=== PATIENT | male | born 1985 | race Caucasian/White ===

== ENCOUNTER 2017-03-19 03:26 | Emergency (ER) | payer MEDICAID ==
[~2017-03-19] VITALS: Ht 175.3 cm; Wt 147.4 kg
--- NOTE | 2017-03-19 04:06 | Emergency Room Report ---
History of Present Illness Time Seen by [id number] Presenting Problem in Triage Pt arrived:Walked Presenting Problem:right rib cage muscle spasm x 2 hours. has had fever and malaise x 7 days. tmax 102.7 saturday night. 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 Y Clinical Suspician of Infection? Y Mental Status: 1 - Regular (Normal Baseline) Sepsis Risk:Low Sepsis Risk Have you (or family members/close friends) recently traveled outside the [place]? N If Yes, where/when: Have you had exposure to infectious disease within the past month? N TB? Other? Specify: Source patient, RN notes reviewed, old records Exam Limitations no limitations Comment fever and not feeling well over the last few days Cardiac Chest Pain Chest pain indicative of cardiac No Timing/Duration this evening Severity moderate ALLERGIES Coded Allergies: Penicillins (03/19/17) amoxicillin (03/19/17) Home Medications Active Scripts Cyclobenzaprine Hcl (Flexeril) 10 MG PO TID #15 Prov: 12/12/09 Ibuprofen (Ibuprofen 800mg) 800 MG PO TID 5 Days Prov: 12/12/09 History Medical History General Angina: No [place]: No Hypertension? No Hyperlipidemia? No COPD? No Asthma? Yes CVA? No Seizures? No Diabetes? No GB Disease: No Hepatitis? No MRSA? No TB? No Cancer? No Immunization Hx DT/Tetanus UNKNOWN Surgical Hx Previous Surgery?N Family History Family Hx Diabetes No Hypertension Yes Cancer Yes TB No Social History Smoking Hx Smoker: Former Smoker Tobacco: Yes Type Chew Packs/day < 1 Pack Alcohol Alcohol: No Drugs none Review of Systems All Other Systems Reviewed and Negative Constitutional see HPI, fever, weakness Eyes denies drainage ENT denies: ear discharge, epistaxis, throat pain. Respiratory denies cough, denies shortness of breath, denies wheezing Cardiovascular denies chest pain, denies syncope Gastrointestinal see HPI, denies abdominal pain, nausea, denies vomiting Genitourinary denies: dysuria, frequency, hesitancy, hematuria. Musculoskeletal denies back pain, denies joint pain, denies joint swelling, denies neck pain Skin denies rash Psychiatric/Neurological denies headache, denies seizure Physical Exam Vital Signs Vital Signs Date Time Temp Pulse Resp B/P Pulse O2 O2 Flow FiO2 Ox Delivery Rate 03/19 0608 98.6 107 16 111/63 97 03/19 0540 98.6 103 16 123/67 97 03/19 0510 98.6 101 16 114/71 97 03/19 0430 98.4 117 16 133/75 97 03/19 0330 98.4 117 16 117/75 97 - WBC >12,000 or <4,000 or 10% bands? 2 or more SIRS Criteria Met? B/P:111/ MAP:89 Creatinine >2.0? UA output<0.5ml/kg/hr for 2 hrs? Platelet count >100,000? Lactate >2.0mmol/1? INR >1.2 or PTT > than 60 sec? Evidence of Organ Dysfunction? Provider documented clinical suspician of infection? Y Sepsis Criteria Count: 1 Sepsis Risk: Low Sepsis Risk General Appearance no apparent distress Eye Exam - bilateral eye PERRL, bilateral eye EOMI Ear, Nose, Throat normal ENT inspection Neck supple Respiratory Status No: respiratory distress. Lung Sounds bilateral: decreased breath sounds. 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 No Results/Orders Laboratory Tests 03/19/17 0600: Urine Color DK YELLOW, Urine Appearance CLEAR, Urine pH 6.0, Ur Specific [place] >= 1.030, Urine Protein NEGATIVE, Urine Ketones TRACE H, Urine Blood NEGATIVE, Urine Nitrate NEGATIVE, Urine Bilirubin NEGATIVE, Urine Urobilinogen 1.0, Ur Leukocyte Esterase NEGATIVE, Urine WBC 5-10, Urine Bacteria 1+, Hyaline Casts OCC, Urine Mucus OCC, Urine Glucose NEGATIVE 03/19/17 0500: Lactic Acid Pending 03/19/17 0500: Sodium 136, Potassium 3.5, Chloride 100, Carbon Dioxide 25, BUN 11, Creatinine 1.0, Estimated Creat Clear 225 H, Estimated GFR (MDRD) 88, Glucose 114 H, Calcium 8.9, Total Bilirubin 0.6, AST 13 L, ALT 34, Alkaline Phosphatase 64, Creatine Kinase 125, CK-MB (CK-2) Rel Index 0.4, CK and CKMB Interp < 0.5, Troponin I 0.05, Total Protein 7.4, Albumin 3.0 L, Globulin 4.4 H, Albumin/ Globulin Ratio 0.7 L, WBC 13.4 H, RBC 4.54 L, Hgb 13.0 L, Hct 39.3 L, MCV 86.6, RDW 14.2, Plt Count 228, Gran % 85.5 H, Gran # 11.5 H, Total Counted 100 , Lymphocytes % 10.7, Monocytes % 3.8, Neutrophils 82 H, Lymphocytes (Manual) 4 L, Lymphocytes # 1.4, Monocytes (Manual) 14 H, Monocytes # 0.5, Platelet Estimate NORMAL, PUBS MCHC 33.1, MCH 28.6 Current Medication Orders Sig/Aurelia Start time Last Medication Dose Route Stop Time Status Admin Levofloxacin/Dextrose 150 ML ONCE ONE 03/19 0500 DCr 03/19 IV 03/19 0629 0508 Sodium Chloride 1,000 ML .Q1H1M 03/19 0500 DC 03/19 IV 03/19 0600 0507 Sodium Chloride 10 ML PRN PRN 03/19 0500 AC IV 03/20 0449 Sodium Chloride 1,000 ML .STK-MED ONE 03/19 0453 DC IV Levofloxacin/Dextrose 150 ML .STK-MED ONE 03/19 0452 DC IV Sodium Chloride 10 ML PRN PRN 03/19 0400 AC IV 03/20 034 Sodium Chloride 10 ML PRN PRN 03/19 034 DC IV 03/20 034 Orders Procedure Date/time Status DIFFERENTIAL-WBC 03/19 0500 Complete ELECTROCARDIOGRAM REQUEST 03/19 347 Active IV SALINE LOCK 03/19 346 Active 12 LEAD EKG-MARLYN (INITIAL) 03/19 345 Active ELECTROCARDIOGRAM REQUEST 03/19 345 Active CHEST(2 VIEWS-NOT PORTABLE) 03/19 344 Active CULTURE, BLOOD 03/19 343 Active URINALYSIS/COMPLETE 03/19 343 Complete LACTIC ACID 03/19 343 Active CBC WITH AUTO DIFF 03/19 343 Complete CARDIAC ENZYMES 03/19 343 Complete CHEM 12 PROFILE 10/03 0343 Complete XRAY/CT/US XRAY/CT/US XRAY chest XR interpretation by reviewed by me Xray Results abnormal (rt cap) Departure Departure Time of Disposition 0651 Disposition DC Home or Self Care(routine) Clinical Impression Primary Impression: CAP (community acquired pneumonia) Qualifiers: Laterality: right Lung location: lower lobe of lung Qualified Code: J18.1 - Lobar pneumonia, unspecified organism Condition STABLE Referrals Jermaine Crawford MD (Family) Patient Instructions DI for Pneumonia -- Adult Additional Instructions fluids and use meds and see pcp for follow up Discharge Counseling Counseled pt/family regarding diagnosis, test results, medications/RX, follow up needs Prescriptions Current Visit Scripts Levofloxacin (Levaquin 500MG) 500 MG PO DAILY #7 TAB ED Critical Care Critical Care No at 0677
[2017-03-19 05:54] LABS: LYMPH # 1.4 K/mm3 (0.7-4.5); LYMPH % 10.7 % (10-50)
[2017-03-19 06:14] LABS: BUN 11 mg/dL (7-18)
[2017-03-19 06:15] LABS: GFR (ESTIMATED) 88 ML/MIN (>60)
[2017-03-19 06:23] LABS: NEUTROPHILS 82 % (42-76)
[2017-03-19 06:38] LABS: URINE BLOOD NEGATIVE (NEG)
[2017-03-19 06:51] LABS: URINE BILIRUBIN - DIPSTICK NEGATIVE (NEG)
[2017-03-19 07:30] VITALS: BP 118/64
--- NOTE | 2017-03-19 08:14 | RADIOLOGY REPORT PS360 ---
CHEST(2 VIEWS-NOT PORTABLE) COMPARISON: None HISTORY: Is a breath TECHNIQUE: PA and lateral chest FINDINGS: This is a poor inspiration. There is ill-defined hazy opacity in the right perihilar region and right lower lobe consistent with a pneumonic infiltrate. The right upper lung field left lung field are clear. Cardiac silhouette and vascularity are otherwise normal. IMPRESSION: Right lower lobe bronchopneumonia
--- OUTSIDE RECORDS SUMMARY | 2017-03-28 06:14 | External Medical Summary Rpt ---
Author Author [employer], [employer] Organization [employer] Address Unknown Phone Unavailable Results CBC W Auto Differential panel in Blood Observa Value Referen Units Interpr Notes Date tion ce etation Range Basophils 0 - 0.2 K/MM3 Normal No Mar 22 informati 2016 7:00 [#/volume on in AM ] in source Blood by data Automated count Basophils 0.1 - 2.0 % Normal No Mar 22 / informati 2017 7:00 leukocyte on in AM s in source Blood by data Automated count Eosinophi 0.0 - 0.4 K/mm3 Normal No Mar 22 ls informati 2016 7:00 [#/volume on in AM ] in source Blood by data Automated count Eosinophi 0.1 - % Normal No Mar 22 ls/100 12.0 informati 2016 7:00 leukocyte on in AM s in source Blood by data Automated count Granulocy 1.3 - 8.0 K/mm3 High No Mar 22 kai informati 2017 7:00 [#/volume on in AM ] in source Blood by data Automated count Granulocy 37.0 - % Normal No Mar 22 kai/100 80.0 informati 2016 7:00 leukocyte on in AM s in source Blood by data Automated count Hematocri 42.0 - % Low No Mar 22 t [Volume 52.0 informati 2016 7:00 on in AM Fraction] source of Blood data Hemoglobi 14.1 - g/dL Low No Mar 22 n 18.0 informati 2016 7:00 [Mass/vol on in AM ume] in source Blood data Lymphocyt 0.7 - 4.5 K/mm3 Normal No Mar 22 es informati 2016 7:00 [#/volume on in AM ] in source Unspecifi data ed specimen by Automated count Lymphocyt 10 - 50 % Normal No Mar 22 es informati 2016 7:00 [#/volume on in AM ] in source Unspecifi data ed specimen by Automated count Erythrocy 27 - 31.2 pg Normal No Mar 22 te mean informati 2016 7:00 corpuscul on in AM ar source hemoglobi data n [Entitic mass] Erythrocy 31.8 - g/dl Low No Mar 6 te mean 35.4 informati 2016 7:00 corpuscul on in AM ar source hemoglobi data n concentra tion [Mass/vol ume] by Automated count Erythrocy 82.2 - fl Normal No Mar 6 te mean 97.8 informati 2016 7:00 corpuscul on in AM ar volume source [Entitic data volume] by Automated count Monocytes 0.1 - 1.0 K/mm3 High No Oct 6 informati 2016 7:00 [#/volume on in AM ] in source Blood by data Automated count Monocytes 1.7 - 9.3 % Normal No Oct 6 /100 informati 2016 7:00 leukocyte on in AM s in source Blood by data Automated count Platelet 7.4 - fl Normal No Mar 6 mean 10.4 informati 2016 7:00 volume on in AM [Entitic source volume] data in Blood by Automated count Platelets 142 - 424 K/mm3 Normal No Mar 6 informati 2016 7:00 [#/volume on in AM ] in source Blood data Erythrocy 4.6 - 6.2 M/mm3 Low No Mar 6 kai informati 2016 7:00 [#/volume on in AM ] in source Amniotic data fluid Erythrocy 11.5 - % Normal No Mar 6 te 17.5 informati 2016 7:00 distribut on in AM ion width source [Entitic data volume] by Automated count Leukocyte 4.8 - K/MM3 High No Mar 6 s 10.8 informati 2016 7:00 [#/volume on in AM ] in source Blood data Mycoplasma pneumoniae IgM Ab [Presence] in Serum by Immunoassay Observa Value Referen Units Interpr Notes Date tion ce etation Range Mycopla NON-OREN NONREAC No No No Mar 21 [address]ma [address]IVE TIVE informa informa informa 2017 pneumon tion in tion in tion in 11:07 iae IgM source source source AM Ab data data data [Presen ce] in Serum by Immunoa ssay Comprehensive metabolic 2000 panel in Serum or Plasma Observa Value Referen Units Interpr Notes Date tion ce etation Range Albumin/G 1.1 - 1.8 No Low No Oct 5 lobulin informati informati 2016 [Mass on in on in 11:00 AM ratio] in source source Serum or data data Plasma Albumin 3.4 - 5.0 gm/dL Low No Mar 5 [Mass/vol informati 2017 ume] in on in 11:00 AM Serum or source Plasma data Alkaline 46 - 116 U/L Normal No Mar 5 phosphata informati 2017 se on in 11:00 AM [Enzymati source c data activity/ volume] in Serum or Plasma Bilirubin 0.2 - 1.0 mg/dL Normal No Oct 5 .total informati 2017 [Mass/vol on in 11:00 AM ume] in source Serum or data Plasma Urea 7 - 18 mg/dL Normal No Mar 5 nitrogen informati 2017 [Mass/vol on in 11:00 AM ume] in source Serum or data Plasma Calcium 8.5 - mg/dL Normal No Mar 21 [Mass/vol 10.1 informati 2016 ume] in on in 11:00 AM Serum or source Plasma data Chloride 98 - 107 mmoL/L Normal No Mar 5 [Moles/vo informati 2016 lume] in on in 11:00 AM Serum or source Plasma data Carbon 21.0 - mmoL/L Normal No Mar 5 dioxide, 32.0 informati 2017 total on in 11:00 AM [Moles/vo source lume] in data Serum or Plasma Creatinin 0.70 - mg/dL Normal No Mar 21 e 1.30 informati 2016 [Mass/vol on in 11:00 AM ume] in source Serum or data Plasma Estimated >60 ML/MIN No REFERENCE Oct 5 informati RANGE: 2017 glomerula on in >60 11:00 AM r source ML/MIN/1. filtratio data 73 SQUARE n rate METERSIf (GF this patient is -A merican, then multiply theresult by 1.210. Globulin 1.3 - 3.2 gm/dL High No Oct 5 [Mass/vol informati 2017 ume] in on in 11:00 AM Serum source data Glucose 74 - 106 mg/dL Normal No Mar 5 [Mass/vol informati 2017 ume] in on in 11:00 AM Serum or source Plasma data Potassium 3.5 - 5.1 mmoL/L Normal No Oct 5 informati 2017 [Moles/vo on in 11:00 AM lume] in source Serum or data Plasma Sodium 136 - 145 mmoL/L Normal No Oct 5 [Moles/vo informati 2017 lume] in on in 11:00 AM Serum or source Plasma data Aspartate 15 - 37 U/L No No Mar 21 informati inform2016 aminotran on in on in 11:00 AM sferase source source [Enzymati data data c activity/ volume] in Serum or Plasma Alanine 12 - 78 U/L Normal No Mar 21 aminotran 2016 sferase on in 11:00 AM [Enzymati source c data activity/ volume] in Serum or Plasma Protein 6.4 - 8.2 gm/dL Normal No Mar 21 [Mass/vol 2016 ume] in on in 11:00 AM Serum or source Plasma data CBC W Auto Differential panel in Blood Observa Value Referen Units Interpr Notes Date tion ce etation Range Basophils 0 - 0.2 K/MM3 Normal No Mar 212016 [#/volume on in 11:00 AM ] in source Blood by data Automated count Basophils 0.1 - 2.0 % Normal No Mar [id number] leukocyte on in 11:00 AM s in source Blood by data Automated count Eosinophi 0.0 - 0.4 K/mm3 Normal No Mar 21 ls 2016 [#/volume on in 11:00 AM ] in source Blood by data Automated count Eosinophi 0.1 - % Normal No Mar 21 ls/100 12.0 2016 leukocyte on in 11:00 AM s in source Blood by data Automated count Granulocy 1.3 - 8.0 K/mm3 High No Mar 21 kai 2016 [#/volume on in 11:00 AM ] in source Blood by data Automated count Granulocy 37.0 - % Normal No Mar 21 kai/100 80.0 2016 leukocyte on in 11:00 AM s in source Blood by data Automated count Hematocri 42.0 - % Low No Mar 21 t [Volume 52.0 2016 on in 11:00 AM Fraction] source of Blood data Hemoglobi 14.1 - g/dL Low No Mar 21 n 18.0 inform2016 [Mass/vol on in 11:00 AM ume] in source Blood data Lymphocyt 0.7 - 4.5 K/mm3 Normal No Mar 21 es 2016 [#/volume on in 11:00 AM ] in source Unspecifi data ed specimen by Automated count Lymphocyt 10 - 50 % Normal No Mar 21 es 2016 [#/volume on in 11:00 AM ] in source Unspecifi data ed specimen by Automated count Erythrocy 27 - 31.2 pg Normal No Mar 21 te mean 2016 corpuscul on in 11:00 AM ar source hemoglobi data n [Entitic mass] Erythrocy 31.8 - g/dl Normal No Mar 21 te mean 35.4 inform2016 corpuscul on in 11:00 AM ar source hemoglobi data n concentra tion [Mass/vol ume] by Automated count Erythrocy 82.2 - fl Normal No Mar 21 te mean 97.8 inform2016 corpuscul on in 11:00 AM ar volume source [Entitic data volume] by Automated count Monocytes 0.1 - 1.0 K/mm3 Normal No Mar 21 inform2016 [#/volume on in 11:00 AM ] in source Blood by data Automated count Monocytes 1.7 - 9.3 % Normal No Mar 21 /100 inform2016 leukocyte on in 11:00 AM s in source Blood by data Automated count Platelet 7.4 - fl Normal No Mar 21 mean 10.4 inform2016 volume on in 11:00 AM [Entitic source volume] data in Blood by Automated count Platelets 142 - 424 K/mm3 Normal No Mar 21 inform2016 [#/volume on in 11:00 AM ] in source Blood data Erythrocy 4.6 - 6.2 M/mm3 Low No Mar 21 kai inform2016 [#/volume on in 11:00 AM ] in source Amniotic data fluid Erythrocy 11.5 - % Normal No Mar 21 te 17.5 inform2016 distribut on in 11:00 AM ion width source [Entitic data volume] by Automated count Leukocyte 4.8 - K/MM3 High No Mar 21 s 10.8 informati 2016 [#/volume on in 11:00 AM ] in source Blood data Lactate [Moles/volume] in Blood Observa Value Referen Units Interpr Notes Date tion ce etation Range Lactate 0.4 - 2.0 mmol/L Normal No Mar 3 [Moles/vo informati 2016 5:00 lume] in on in AM Blood source data CBC W Auto Differential panel in Blood Observa Value Referen Units Interpr Notes Date tion ce etation Range Granulocy 1.3 - 8.0 K/mm3 High No Mar 3 kai informati 2016 5:00 [#/volume on in AM ] in source Blood by data Automated count Granulocy 37.0 - % High No Mar 19 kai/100 80.0 informati 2016 5:00 leukocyte on in AM s in source Blood by data Automated count Hematocri 42.0 - % Low No Mar 19 t [Volume 52.0 informati 2016 5:00 on in AM Fraction] source of Blood data Hemoglobi 14.1 - g/dL Low No Mar 3 n 18.0 informati 2016 5:00 [Mass/vol on in AM ume] in source Blood data Lymphocyt 0.7 - 4.5 K/mm3 Normal No Mar 19 es informati 2016 5:00 [#/volume on in AM ] in source Unspecifi data ed specimen by Automated count Lymphocyt 10 - 50 % Normal No Mar 19 es informati 2016 5:00 [#/volume on in AM ] in source Unspecifi data ed specimen by Automated count Erythrocy 27 - 31.2 pg Normal No Mar 19 te mean informati 2016 5:00 corpuscul on in AM ar source hemoglobi data n [Entitic mass] Erythrocy 31.8 - g/dl Normal No Mar 19 te mean 35.4 informati 2016 5:00 corpuscul on in AM ar source hemoglobi data n concentra tion [Mass/vol ume] by Automated count Erythrocy 82.2 - fL Normal No Mar 19 te mean 97.8 informati 2016 5:00 corpuscul on in AM ar volume source [Entitic data volume] by Automated count Monocytes 0.1 - 1.0 K/mm3 Normal No Mar 19 informati 2016 5:00 [#/volume on in AM ] in source Blood by data Automated count Monocytes 1.7 - 9.3 % Normal No Mar 19 /100 informati 2017 5:00 leukocyte on in AM s in source Blood by data Automated count Platelets 142 - 424 K/mm3 Normal No Mar 3 informati 2016 5:00 [#/volume on in AM ] in source Blood data Erythrocy 4.6 - 6.2 M/mm3 Low No Mar 3 kai informati 2016 5:00 [#/volume on in AM ] in source Amniotic data fluid Erythrocy 11.5 - % Normal No Mar 3 te 17.5 informati 2016 5:00 distribut on in AM ion width source [Entitic data volume] by Automated count Leukocyte 4.8 - K/mm3 High No Mar 3 s 10.8 informati 2016 5:00 [#/volume on in AM ] in source Blood data Differential panel, method unspecified - Observa Value Referen Units Interpr Notes Date tion ce etation Range LYMPH 4 10 - 50 % Low No Oct 3 inform2016 tion in 5:00 AM source data Monocytes 2 - 9 % High No Oct 3 /100 informati 2016 5:00 leukocyte on in AM s in source Blood by data Automated count Platele NORMAL No No No No Mar 3 ts informa inform informa inform2016 [Presen tion in tion in tion in tion in 5:00 AM ce] in source source source source Blood data data data data by Light microsc opy Neutrophi 42 - 76 % High No Mar 3 ls 2016 5:00 [#/volume on in AM ] in source Blood by data Automated count Cells No #CELLS No No Mar 3 Counted informati informati informati 2016 5:00 Total [#] on in on in on in AM in Blood source source source data data data
--- OUTSIDE RECORDS SUMMARY | 2017-03-28 06:14 | External Medical Summary Rpt | CCD ---
Demographics Preferred Language Nigerian Marital Status Unknown Mormonism Affiliation Unknown Race Unknown Ethnic Group Unknown Author Author , NIVIA GONZÁLES Address Unknown Phone [email or web address] Immunization Name Date Rout CVX Reac Dose Comm Prov Is Faci e tion ent ider Refu lity Give sed n MMR 08-1 3 999 Hist H149 No H149 1-19 oric 98 al Info rmat ion - Sour ce Unsp ecif ied
--- OUTSIDE RECORDS SUMMARY | 2017-03-28 06:14 | External Medical Summary Rpt | CCD ---
Author Author , NIVIA GONZÁLES Address Unknown Phone [email or web address] Purpose Continuity of Care Document - through 2016
--- OUTSIDE RECORDS SUMMARY | 2017-03-28 06:14 | External Medical Summary Rpt | CCD ---
Demographics Preferred Language Nepalese Marital Status Unknown Samaritan Affiliation Unknown Race Unknown Ethnic Group Unknown Author Author , NIVIA GONZÁLES Address Unknown Phone [email or web address] Immunization Name Date Rout CVX Reac Dose Comm Prov Is Faci e tion ent ider Refu lity Give sed n MMR 08-1 3 999 Hist H149 No H149 1-19 oric 98 al Info rmat ion - Sour ce Unsp ecif ied
--- OUTSIDE RECORDS SUMMARY | 2017-03-28 06:14 | External Medical Summary Rpt | CCD ---
Author Author , [employer] Organization [employer] Address Unknown Phone [email or web address] Purpose Continuity of Care Document - 03-19-2017 through 2016 Results Labs Lab Lab Date Result Refere Interp Status Commen Order Detail nces retati t Range on Mycoplasma pneumoniae IgM Ab [Presence] in Serum by Immunoassay (03-21-2017 11:07) Mycopla NON-OREN NONREAC complet sma 017 CTIVE TIVE ed pneumon 11:07 iae IgM Ab [Presen ce] in Serum by Immunoa ssay Differential panel, method unspecified - (03-19-2017 05:00) LYMPH 4 % 10% - Low complet 017 50% ed 05:00 Platele NORMAL complet ts 017 ed [Presen 05:00 ce] in Blood by Light microsc opy
--- OUTSIDE RECORDS SUMMARY | 2017-03-28 06:14 | External Medical Summary Rpt | CCD ---
Author Author , NIVIA GONZÁLES Address Unknown Phone [email or web address] Purpose Continuity of Care Document - through 2016
--- OUTSIDE RECORDS SUMMARY | 2017-03-28 06:14 | External Medical Summary Rpt | CCD ---
Author Author , [employer] Organization [employer] Address Unknown Phone [email or web address] Purpose Continuity of Care Document - 03-19-2017 [...]
== END 2017-03-19 07:31 | disposition home or self-care (01) ==
LOC: ER 03:26
PROVIDERS: Emergency Medicine
DX: J18.1 Lobar pneumonia, unspecified organism (principal); F17.220 Nicotine dependence, chewing tobacco, uncomplicated; J45.909 Unspecified asthma, uncomplicated

== ENCOUNTER 2017-03-21 10:58 | Inpatient (IN) | payer MEDICAID ==
[~2017-03-21] VITALS: Ht 172.7 cm; Wt 145.2 kg
[~2017-03-21 10:58] MED LIST: FLEXERIL10 MG PO; IBU-8800 MG PO; LEVAQUIN500 MG PO; LORTAB 5/500 501 TAB PO; VIBRAMYCIN 100100 MG PO
[2017-03-21 11:29] LABS: HEMOGLOBIN 11.7 g/dL (14.1-18.0); LYMPH # 1.6 K/mm3 (0.7-4.5); LYMPH % 11.7 % (10-50)
[2017-03-21 11:41] LABS: BUN 12 mg/dL (7-18)
[2017-03-21 11:52] LABS: GFR (ESTIMATED) 88 ML/MIN (>60)
--- NOTE | 2017-03-21 12:32 | HISTORY AND PHYSICAL REPORT ---
Demographics: Admit date: 03/21/17 Chief complaint: right sided chest pain, fever and shortness of breath PRIMARY DIAGNOSIS: Right lower lobe pneumonia failed outpatient treatment Allergies: Coded Allergies: Penicillins (03/19/17) amoxicillin (03/19/17) History of present illness: History of present illness: 31-year-old white male with a history of mild intermittent asthma was seen in the office today with persistent fevers, shortness of breath and right-sided chest pain. He was seen in the ED on 03/19 and diagnosed with RIGHT lower lobe pneumonia. White blood cell count at that time was 13.4. He was started on Levaquin. Patient reports he has continued to have persistent fevers, Tmax 102.7 last night. He further reports loss of appetite, weakness and malaise. He was sent for an outpatient chest x-ray and labs. Chest x-ray revealed worsening pneumonia and white blood cell count remained elevated at 13.9. Patient was admitted to acute care for IV antibiotics and further evaluation. Past medical history: Family HX Diabetes No Hypertension Yes Cancer Yes TB No Immunization HX DT/Tetanus UNKNOWN General Angina: No [place]: No Hypertension? No Hyperlipidemia? No COPD? No Asthma? Yes CVA? No Seizures? No Diabetes? No GB Disease: No Hepatitis? No MRSA? No TB? No Cancer? No Past Surgical HX Previous Surgery?N Current home meds: Active Scripts Levofloxacin (Levaquin 500MG) 500 MG PO DAILY #7 TAB Prov: 03/19/17 Cyclobenzaprine Hcl (Flexeril) 10 MG PO TID #15 Prov: 12/12/09 Ibuprofen (Ibuprofen 800mg) 800 MG PO TID 5 Days Prov: 12/12/09 Social Hx: Smoking HX Tobacco No Alcohol Alcohol: No Hx of Drug Use Drug Use? No Patien't marital status is Review of systems: Constitutional chills, diaphoresis, fever, malaise, weakness. Eyes No: no symptoms reported. Ears, Nose, Mouth, Throat No no symptoms reported Respiratory see HPI. Cardiovascular No no symptoms reported Gastrointestinal/Abdominal No no symptoms reported Genitourinary No: no symptoms reported. Musculoskeletal No: no symptoms reported. Skin No: no symptoms reported. Neurological No: no symptoms reported. Psychiatric No: no symptoms reported. Exam: Lab data for last 24 hours: Laboratory Tests 03/21/17 1100: Sodium 138, Potassium 4.1, Chloride 101, Carbon Dioxide 30, BUN 12, Creatinine 1.0, Estimated GFR (MDRD) 88, Glucose 91, Calcium 9.1, Total Bilirubin 0.5, AST 21, ALT 39, Alkaline Phosphatase 73, Total Protein 7.9, Albumin 2.7 L, Globulin 5.2 H, Albumin/Globulin Ratio 0.5 L, WBC 13.9 H, RBC 4.02 L, Hgb 11.7 L, Hct 34.8 L, MCV 86.5, RDW 12.0, Plt Count 400, MPV 7.8, Gran % 79.4, Gran # 11.0 H, Lymphocytes % 11.7, Monocytes % 6.2, Eosinophils % 2.3, Basophils % 0.4 , Lymphocytes # 1.6, Monocytes # 0.9, Eosinophils # 0.3, Basophils # 0.1, PUBS MCHC 33.5, MCH 29.0 Microbiology 03/21 1100 BLOOD: Anaerobic Blood Culture - RECD 03/21 1100 BLOOD: Aerobic Blood Culture - RECD 03/21 UNK BLOOD: Anaerobic Blood Culture - ORD 03/21 UNK BLOOD: Aerobic Blood Culture - ORD Exam General appearance: alert, no acute distress Eyes: anicteric ENT: mucous membranes moist Neck: normal inspection, non-tender, no carotid bruit, no JVD Cardiovascular: regular rate & rhythm, no murmur, normal peripheral pulses Respiratory: rhonchi/crackles/diminised in RLL/RML ABD: non-distended, normal bowel sounds, no rebound, soft, no tenderness Genitourinary: no dysuria, no hematuria Extremities: moves all Musculoskeletal: equal muscle strength Skin: dry, intact, pale Neuro: no deficit, normal mood/affect, oriented, speech clear Plan: Problem List 1. Right lower lobe pneumonia Assessment/Plan Change antibiotics to azithromycin and ceftriaxone. Start duo nebs. Will obtain sputum and blood cultures. Plan: See above at 1232
[2017-03-21 12:33] VITALS: BP 122/74
[2017-03-21 14:46] VITALS: BP 122/74
[2017-03-21] MEDS ORDERED: PROVENTIL0.09 MG/A1 IH (15:24)
[2017-03-21 16:15] VITALS: BP 140/78
[2017-03-21 20:30] VITALS: BP 112/51
[2017-03-22] VITALS (8 sets, daily range): BP systolic 99–129; BP diastolic 47–76
--- NOTE | 2017-03-22 07:13 | ACUTE CARE PROGRESS NOTE (QUA) ---
Progress Notes Subjective Date 03/22/17 Time 0711 Note Overall patient feels somewhat better, continued to have some drenching sweats associated with high fever. Reading is much easier. Unfortunately, has not been able to cough up a good sputum sample. Exam reveals crackles in both bases, slightly worse on the RIGHT, better air entry.heart rate regular. No edema noted. Patient's alert, oriented 3. Objective Findings Last VS-Temp:102.5 B/P:101/47 Pulse:123 Resp:20 SaO2:92 ROOM AIR Last weight lbs:320 oz:1 K.180 Method:Bed Scales Assessment/Plan Problem List 1. Right lower lobe pneumonia Patient condition Improving Plan: continue current care, admit commenced for sputum clearance. Watch lites carefully. Continue current therapy. This inpt stay is expected to cross 2 MNs from start of care Yes at 0712
--- NOTE | 2017-03-22 07:27 | PHARMACY CLINIC NOTE ---
Patient Demographics Patient Demographics Admission date: 03/21/17 Date: 03/22/17 Time: 07 Allergies Coded Allergies: Penicillins (03/19/17) amoxicillin (03/19/17) HEIGHT- FT: 5 IN: 8.00 K.180 VTE General Information Labs: Laboratory Tests 03/21 1100 Hematology Hgb (14.1 - 18.0 g/dL) 11.7 L Hct (42.0 - 52.0 %) 34.8 L Plt Count (142 - 424 K/mm3) 400 Disclaimer The following section includes nursing documentation that has been pulled in for pharmacy review. Patient's VTE score: 1 Patient's VTE Risk: VERY LOW RISK Clinical trial participant? No VTE prophylaxis [id number] VTE prophylaxis ordered? Yes Type of prophylaxis/treatment: MOODY at 0726
[2017-03-22 07:33] LABS: HEMOGLOBIN 11.2 g/dL (14.1-18.0); LYMPH # 2.2 K/mm3 (0.7-4.5); LYMPH % 16.6 % (10-50)
--- NOTE | 2017-03-22 08:29 | RADIOLOGY REPORT PS360 ---
CHEST(2 VIEWS-NOT PORTABLE) COMPARISON: PA and lateral chest 03/19/2017 HISTORY: Follow-up pneumonia TECHNIQUE: PA and lateral chest FINDINGS: Again noted is a poor inspiration. There now is a more diffuse ill-defined opacity in the right perihilar region and right lower lobe consistent with radiograph progression of pneumonia with probable "blossoming" of the pneumonia secondary to better hydration. Right upper lung field and left lung field remain clear. The cardiac silhouette is normal. IMPRESSION: Interval worsening of diffuse pneumonia involving the right lower lobe. With slightly more diffuse consolidation noted on today's study when compared to the previous study.
[2017-03-23 00:07] VITALS: BP 139/70
[2017-03-23 03:50] VITALS: BP 145/71
[2017-03-23 06:21] LABS: HEMOGLOBIN 11.2 g/dL (14.1-18.0); LYMPH # 1.9 K/mm3 (0.7-4.5); LYMPH % 24.5 % (10-50)
[2017-03-23] MEDS ORDERED: OMNICEF 300 MG300 MG PO (06:49)
[2017-03-23] MEDS ORDERED: ZITHROMAX Z-PA250 M2 PO (06:49)
--- NOTE | 2017-03-23 06:49 | DISCHARGE SUMMARY STANDARD ---
Demographics Admit date: 03/21/17 Discharge date: 03/23/17 History of present illness History of present illness 31-year-old white male with a history of mild intermittent asthma was seen in the office today with persistent fevers, shortness of breath and right-sided chest pain. He was seen in the ED on 03/19 and diagnosed with RIGHT lower lobe pneumonia. White blood cell count at that time was 13.4. He was started on Levaquin. Patient reports he has continued to have persistent fevers, Tmax 102.7 last night. He further reports loss of appetite, weakness and malaise. He was sent for an outpatient chest x-ray and labs. Chest x-ray revealed worsening pneumonia and white blood cell count remained elevated at 13.9. Patient was admitted to acute care for IV antibiotics and further evaluation. Hospital Course Hospital Course: Patient was admitted, placed on ceftriaxone and azithromycin. Did very nicely with this, defervesced over the next 36 hours and his white count normalized. Sputum culture is pending at the time of discharge shows gram-positive diplococci. He'll continue treatment with cephalosporin and macrolide antibiotics. Ventolin inhaler when necessary, close follow-up in our office in 3 days. Exam today shows clearing lungs, only minimal rhonchi on the RIGHT base, heart rate regular, abdomen soft, patient's alert, oriented 3, no rash. Discharge diagnoses Problem List 1. Right lower lobe pneumonia Medications Medications: Discharge meds are as noted. Follow up Follow up in office in: 3 DAYS with: NATALIA WISE APRN at 0648
[2017-03-23 08:05] VITALS: BP 149/91
[2017-03-23 08:15] VITALS: BP 149/91
--- OUTSIDE RECORDS SUMMARY | 2017-03-28 19:22 | External Medical Summary Rpt | CCD ---
Author Author , NIVIA GONZÁLES Address Unknown Phone [email or web address] Purpose Continuity of Care Document - through 2016
--- OUTSIDE RECORDS SUMMARY | 2017-03-28 19:22 | External Medical Summary Rpt | CCD ---
Demographics Preferred Language Citizen Of [place] Marital Status Unknown Rastafari Affiliation Unknown Race Unknown Ethnic Group Unknown Author Author , NIVIA GONZÁLES Address Unknown Phone [email or web address] Immunization Name Date Rout CVX Reac Dose Comm Prov Is Faci e tion ent ider Refu lity Give sed n MMR 08-1 3 999 Hist H149 No H149 1-19 oric 98 al Info rmat ion - Sour ce Unsp ecif ied
--- OUTSIDE RECORDS SUMMARY | 2017-03-28 19:22 | External Medical Summary Rpt | CCD ---
Author Author , NIVIA GONZÁLES Address Unknown Phone [email or web address] Purpose Continuity of Care Document - through 2016
--- OUTSIDE RECORDS SUMMARY | 2017-03-28 19:22 | External Medical Summary Rpt | CCD ---
Author Author , [employer]IVIA Organization [employer] Address Unknown Phone [email or web address] Purpose Continuity of Care Document - 03-19-2017 [...]
--- OUTSIDE RECORDS SUMMARY | 2017-03-28 19:22 | External Medical Summary Rpt | CCD ---
Author Author , [employer]IA Organization [employer] Address Unknown Phone [email or web address] Purpose Continuity of Care Document - 03-19-2017 [...]
--- OUTSIDE RECORDS SUMMARY | 2017-03-28 19:22 | External Medical Summary Rpt | CCD ---
Demographics Preferred Language Sri Lankan Marital Status Unknown Yazidism Affiliation Unknown Race Unknown Ethnic Group Unknown Author Author , NIVIA GONZÁLES Address Unknown Phone [email or web address] Immunization Name Date Rout CVX Reac Dose Comm Prov Is Faci e tion ent ider Refu lity Give sed n MMR 08-1 3 999 Hist H149 No H149 1-19 oric 98 al Info rmat ion - Sour ce Unsp ecif ied
--- OUTSIDE RECORDS SUMMARY | 2017-03-28 19:23 | External Medical Summary Rpt ---
Author Author N[facility] Murry, [employer] Organization [employer] Address Unknown Phone Unavailable Results Basic metabolic panel in Blood Observa Value Referen Units Interpr Notes Date tion ce etation Range Urea 7 - 18 mg/dL Normal No Oct 7 nitrogen informati 2017 6:05 [Mass/vol on in AM ume] in source Serum or data Plasma Calcium 8.5 - mg/dL Normal No Oct 7 [Mass/vol 10.1 informati 2017 6:05 ume] in on in AM Serum or source Plasma data Chloride 98 - 107 mmoL/L Normal No Oct 7 [Moles/vo informati 2017 6:05 lume] in on in AM Serum or source Plasma data Carbon 21.0 - mmoL/L Normal No Oct 7 dioxide, 32.0 informati 2017 6:05 total on in AM [Moles/vo source lume] in data Serum or Plasma Creatinin 0.70 - mg/dL Normal No Oct 7 e 1.30 informati 2017 6:05 [Mass/vol on in AM ume] in source Serum or data Plasma Creatinin 50 - 200 ML/MIN High No Oct 7 e renal informati 2017 6:05 clearance on in AM source predicted data by Cockcroft -Gault formula Estimated >60 ML/MIN No REFERENCE Oct 7 informati RANGE: 2017 6:05 glomerula on in >60 AM r source ML/MIN/1. filtratio data 73 SQUARE n rate METERSIf (GF this patient is -A merican, then multiply theresult by 1.210. Glucose 74 - 106 mg/dL Normal No Oct 7 [Mass/vol informati 2017 6:05 ume] in on in AM Serum or source Plasma data Potassium 3.5 - 5.1 mmoL/L Normal No Oct 7 informati 2017 6:05 [Moles/vo on in AM lume] in source Serum or data Plasma Sodium 136 - 145 mmoL/L Normal No Oct 7 [Moles/vo informati 2017 6:05 lume] in on in AM Serum or source Plasma data CBC W Auto Differential panel in Blood Observa Value Referen Units Interpr Notes Date tion ce etation Range Basophils 0 - 0.2 K/MM3 Normal No Mar 23 informati 2016 6:05 [#/volume on in AM ] in source Blood by data Automated count Basophils 0.1 - 2.0 % Normal No Mar 23 /100 informati 2017 6:05 leukocyte on in AM s in source Blood by data Automated count Eosinophi 0.0 - 0.4 K/mm3 Normal No Mar 23 ls informati 2016 6:05 [#/volume on in AM ] in source Blood by data Automated count Eosinophi 0.1 - % Normal No Mar 23 ls/100 12.0 informati 2017 6:05 leukocyte on in AM s in source Blood by data Automated count Granulocy 1.3 - 8.0 K/mm3 Normal No Mar 23 kai informati 2017 6:05 [#/volume on in AM ] in source Blood by data Automated count Granulocy 37.0 - % Normal No Mar 23 kai/100 80.0 informati 2016 6:05 leukocyte on in AM s in source Blood by data Automated count Hematocri 42.0 - % Low No Mar 23 t [Volume 52.0 informati 2017 6:05 on in AM Fraction] source of Blood data Hemoglobi 14.1 - g/dL Low No Mar 23 n 18.0 informati 2017 6:05 [Mass/vol on in AM ume] in source Blood data Lymphocyt 0.7 - 4.5 K/mm3 Normal No Mar 23 es informati 2016 6:05 [#/volume on in AM ] in source Unspecifi data ed specimen by Automated count Lymphocyt 10 - 50 % Normal No Mar 23 es informati 2016 6:05 [#/volume on in AM ] in source Unspecifi data ed specimen by Automated count Erythrocy 27 - 31.2 pg Normal No Mar 23 te mean informati 2016 6:05 corpuscul on in AM ar source hemoglobi data n [Entitic mass] Erythrocy 31.8 - g/dl Low No Mar 23 te mean 35.4 informati 2017 6:05 corpuscul on in AM ar source hemoglobi data n concentra tion [Mass/vol ume] by Automated count Erythrocy 82.2 - fl Normal No Mar 23 te mean 97.8 informati 2016 6:05 corpuscul on in AM ar volume source [Entitic data volume] by Automated count Monocytes 0.1 - 1.0 K/mm3 Normal No Mar 23 inform2016 6:05 [#/volume on in AM ] in source Blood by data Automated count Monocytes 1.7 - 9.3 % Normal No Mar 23 inform2016 6:05 leukocyte on in AM s in source Blood by data Automated count Platelet 7.4 - fl Normal No Mar 23 mean 10.4 informati 2016 6:05 volume on in AM [Entitic source volume] data in Blood by Automated count Platelets 142 - 424 K/mm3 Normal No Mar 23 informati 2016 6:05 [#/volume on in AM ] in source Blood data Erythrocy 4.6 - 6.2 M/mm3 Low No Mar 23 kai informati 2016 6:05 [#/volume on in AM ] in source Amniotic data fluid Erythrocy 11.5 - % Normal No Mar 23 te 17.5 informati 2016 6:05 distribut on in AM ion width source [Entitic data volume] by Automated count Leukocyte 4.8 - K/MM3 No No Mar 23 s 10.8 informati informati 2016 6:05 [#/volume on in on in AM ] in source source Blood data data CBC W Auto Differential panel in Blood Observa Value Referen Units Interpr Notes Date tion ce etation Range Basophils 0 - 0.2 K/MM3 Normal No Mar 22 inform2016 7:00 [#/volume on in AM ] in source Blood by data Automated count Basophils 0.1 - 2.0 % Normal No Mar 22 informati 2016 7:00 leukocyte on in AM s in source Blood by data Automated count Eosinophi 0.0 - 0.4 K/mm3 Normal No Mar 6 ls informati 2016 7:00 [#/volume on in AM ] in source Blood by data Automated count Eosinophi 0.1 - % Normal No Mar 22 ls/100 12.0 informati 2016 7:00 leukocyte on in AM s in source Blood by data Automated count Granulocy 1.3 - 8.0 K/mm3 High No Mar 22 kai informati 2016 7:00 [#/volume on in AM ] in source Blood by data Automated count Granulocy 37.0 - % Normal No Mar 22/100 80.0 informati 2016 7:00 leukocyte on in AM s in source Blood by data Automated count Hematocri 42.0 - % Low No Mar 6 t [Volume 52.0 informati 2017 7:00 on in AM Fraction] source of Blood data Hemoglobi 14.1 - g/dL Low No Mar 6 n 18.0 informati 2016 7:00 [Mass/vol on in AM ume] in source Blood data Lymphocyt 0.7 - 4.5 K/mm3 Normal No Mar 6 es informati 2016 7:00 [#/volume on in AM ] in source Unspecifi data ed specimen by Automated count Lymphocyt 10 - 50 % Normal No Mar 6 es informati 2016 7:00 [#/volume on in AM ] in source Unspecifi data ed specimen by Automated count Erythrocy 27 - 31.2 pg Normal No Mar 6 te mean informati 2016 7:00 corpuscul on in AM ar source hemoglobi data n [Entitic mass] Erythrocy 31.8 - g/dl Low No Mar 6 te mean 35.4 informati 2016 7:00 corpuscul on in AM ar source hemoglobi data n concentra tion [Mass/vol ume] by Automated count Erythrocy 82.2 - fl Normal No Mar 6 te mean 97.8 informati 2017 7:00 corpuscul on in AM ar volume source [Entitic data volume] by Automated count Monocytes 0.1 - 1.0 K/mm3 High No Mar 6 informati 2017 7:00 [#/volume on in AM ] in source Blood by data Automated count Monocytes 1.7 - 9.3 % Normal No Oct 6 /100 informati 2017 7:00 leukocyte on in AM s in source Blood by data Automated count Platelet 7.4 - fl Normal No Mar 6 mean 10.4 informati 2017 7:00 volume on in AM [Entitic source volume] data in Blood by Automated count Platelets 142 - 424 K/mm3 Normal No Mar 6 informati 2017 7:00 [#/volume on in AM ] in source Blood data Erythrocy 4.6 - 6.2 M/mm3 Low No Mar 6 kai informati 2017 7:00 [#/volume on in AM ] in source Amniotic data fluid Erythrocy 11.5 - % Normal No Mar 6 te 17.5 informati 2016 7:00 distribut on in AM ion width source [Entitic data volume] by Automated count Leukocyte 4.8 - K/MM3 High No Oct 6 s 10.8 informati 2017 7:00 [#/volume on in AM ] in source Blood data Mycoplasma pneumoniae IgM Ab [Presence] in Serum by Immunoassay Observa Value Referen Units Interpr Notes Date tion ce etation Range Mycopla NON-OREN NONREAC No No No Mar 5 sma CTIVE TIVE informa informa informa 2017 pneumon tion in tion in tion in 11:07 iae IgM source source source AM Ab data data data [Presen ce] in Serum by Immunoa ssay Comprehensive metabolic 2000 panel in Serum or Plasma Observa Value Referen Units Interpr Notes Date tion ce etation Range Albumin/G 1.1 - 1.8 No Low No Mar 5 lobulin informati informati 2016 [Mass on in on in 11:00 AM ratio] in source source Serum or data data Plasma Albumin 3.4 - 5.0 gm/dL Low No Mar 5 [Mass/vol informati 2016 ume] in on in 11:00 AM Serum or source Plasma data Alkaline 46 - 116 U/L Normal No Mar 21 phosphata informati 2017 se on in 11:00 AM [Enzymati source c data activity/ volume] in Serum or Plasma Bilirubin 0.2 - 1.0 mg/dL Normal No Mar 5 .total informati 2016 [Mass/vol on in 11:00 AM ume] in source Serum or data Plasma Urea 7 - 18 mg/dL Normal No Mar 5 nitrogen informati 2016 [Mass/vol on in 11:00 AM ume] in source Serum or data Plasma Calcium 8.5 - mg/dL Normal No Mar 5 [Mass/vol 10.1 informati 2016 ume] in on [...] Creatinin 0.70 - mg/dL Normal No Mar 5 e 1.30 informati 2017 [Mass/vol on in 11:00 AM ume] in source Serum or data Plasma Estimated >60 ML/MIN No REFERENCE Mar 5 informati RANGE: 2017 glomerula on in >60 11:00 AM r source ML/MIN/1. filtratio data 73 SQUARE n rate METERSIf (GF this patient is -A merican, then multiply theresult by 1.210. Globulin 1.3 - 3.2 gm/dL High No Mar 21 [Mass/vol informati 2016 ume] in on in 11:00 AM Serum source data Glucose 74 - 106 mg/dL Normal No Mar 21 [Mass/vol informati 2016 ume] in on in 11:00 AM Serum or source Plasma data Potassium 3.5 - 5.1 mmoL/L Normal No Mar 212016 [Moles/vo on in 11:00 AM lume] in source Serum or data Plasma Sodium 136 - 145 mmoL/L Normal No Mar 21 [Moles/vo informati 2016 lume] in on in 11:00 AM Serum or source Plasma data Aspartate 15 - 37 U/L No No Mar 21 informati informati 2016 aminotran on in on in 11:00 AM sferase source source [Enzymati data data c activity/ volume] in Serum or Plasma Alanine 12 - 78 U/L Normal No Mar 21 aminotran inform2016 sferase on in 11:00 AM [Enzymati source c data activity/ volume] in Serum or Plasma Protein 6.4 - 8.2 gm/dL Normal No Mar 21 [Mass/vol informati 2016 ume] in on in 11:00 AM Serum or source Plasma data CBC W Auto Differential panel in Blood Observa Value Referen Units Interpr Notes Date tion ce etation Range Basophils 0 - 0.2 K/MM3 Normal No Mar 212016 [#/volume on in 11:00 AM ] in source Blood by data Automated count Basophils 0.1 - 2.0 % Normal No Mar 21 inform2016 leukocyte on in 11:00 AM s in source Blood by data Automated count Eosinophi 0.0 - 0.4 K/mm3 Normal No Mar 21 ls informati 2016 [#/volume on in 11:00 AM ] in source Blood by data Automated count Eosinophi 0.1 - % Normal No Mar 21 ls/100 12.0 inform2016 leukocyte on in 11:00 AM s in source Blood by data Automated count Granulocy 1.3 - 8.0 K/mm3 High No Mar 21 kai 2016 [#/volume on in 11:00 AM ] in source Blood by data Automated count Granulocy 37.0 - % Normal No Mar 21 kai/100 80.0 informati 2016 leukocyte on in 11:00 AM s in source Blood by data Automated count Hematocri 42.0 - % Low No Mar 21 t [Volume 52.0 informati 2016 on in 11:00 AM Fraction] source of Blood data Hemoglobi 14.1 - g/dL Low No Mar 21 n 18.0 informati 2016 [Mass/vol on in 11:00 AM ume] in source Blood data Lymphocyt 0.7 - 4.5 K/mm3 Normal No Mar 21 es informati 2016 [#/volume on in 11:00 AM ] in source Unspecifi data ed specimen by Automated count Lymphocyt 10 - 50 % Normal No Mar 21 es informati 2016 [#/volume on in 11:00 AM ] in source Unspecifi data ed specimen by Automated count Erythrocy 27 - 31.2 pg Normal No Mar 21 te mean inform2016 corpuscul on in 11:00 AM ar [...] - 9.3 % Normal No Mar 21 / inform2016 leukocyte on in 11:00 AM s in source Blood by data Automated count Platelet 7.4 - fl Normal No Mar 21 mean 10.4 informati 2016 volume on in 11:00 AM [Entitic source volume] data in Blood by Automated count Platelets 142 - 424 K/mm3 Normal No Mar 21 informati 2016 [#/volume on in 11:00 AM ] in source Blood data Erythrocy 4.6 - 6.2 M/mm3 Low No Mar 21 kai informati 2016 [#/volume on in 11:00 AM ] in source Amniotic data fluid Erythrocy 11.5 - % Normal No Mar 21 te 17.5 informati 2016 distribut on in 11:00 AM ion width source [Entitic data volume] by Automated count Leukocyte 4.8 - K/MM3 High No Oct 5 s 10.8 informati 2016 [#/volume on in 11:00 AM ] in source Blood data Lactate [Moles/volume] in Blood Observa Value Referen Units Interpr Notes Date tion ce etation Range Lactate 0.4 - 2.0 mmol/L Normal No Oct 3 [Moles/vo informati 2016 5:00 lume] in on in AM Blood source data CBC W Auto Differential panel in Blood Observa Value Referen Units Interpr Notes Date tion ce etation Range Granulocy 1.3 - 8.0 K/mm3 High No Oct 3 kai informati 2016 5:00 [#/volume on in AM ] in source Blood by data Automated count Granulocy 37.0 - % High No Oct 3 kai/100 80.0 informati 2016 5:00 leukocyte on in AM s in source Blood by data Automated count Hematocri 42.0 - % Low No Mar 3 t [Volume 52.0 informati 2016 5:00 on in AM Fraction] source of Blood data Hemoglobi 14.1 - g/dL Low No Oct 3 n 18.0 informati 2016 5:00 [Mass/vol on in AM ume] in source Blood data Lymphocyt 0.7 - 4.5 K/mm3 Normal No Oct 3 es informati 2016 5:00 [#/volume on in AM ] in source Unspecifi data ed specimen by Automated count Lymphocyt 10 - 50 % Normal No Oct 3 es informati 2016 5:00 [#/volume on in AM ] in source Unspecifi data ed specimen by Automated count Erythrocy 27 - 31.2 pg Normal No Oct 3 te mean informati 2016 5:00 corpuscul on in AM ar source hemoglobi data n [Entitic mass] Erythrocy 31.8 - g/dl Normal No Oct 3 te mean 35.4 informati 2016 5:00 corpuscul on in AM ar source hemoglobi data n concentra tion [Mass/vol ume] by Automated count Erythrocy 82.2 - fL Normal No Oct 3 te mean 97.8 informati 2016 5:00 corpuscul on in AM ar volume source [Entitic data volume] by Automated count Monocytes 0.1 - 1.0 K/mm3 Normal No Oct 3 inform2016 5:00 [#/volume on in AM ] in source Blood by data Automated count Monocytes 1.7 - 9.3 % Normal No Oct 3 informati 2016 5:00 leukocyte on in AM s in source Blood by data Automated count Platelets 142 - 424 K/mm3 Normal No Oct 3 inform2016 5:00 [#/volume on in AM ] in [...] count Leukocyte 4.8 - K/mm3 High No Oct 3 s 10.8 ati 2016 5:00 [#/volume on in AM ] in source Blood data Differential panel, method unspecified - Observa Value Referen Units Interpr Notes Date tion ce etation Range LYMPH 4 10 - 50 % Low No Mar 3 2016 tion in 5:00 AM source data Monocytes 2 - 9 % High No Mar 19ati 2016 5:00 leukocyte on in AM s in source Blood by data Automated count Platele NORMAL No No No No Mar 3 ts informa informa informa inform2016 [Presen tion in tion in tion in tion in 5:00 AM ce] in source source source source Blood data data data data by Light microsc opy Neutrophi 42 - 76 % High No Mar 3 ls ati 2016 5:00 [#/volume on in AM ] in source Blood by data Automated count Cells No #CELLS No No Oct 3 Counted informati informati informati 2016 5:00 Total [#] on in on in on in AM in Blood source source source data data data
== END 2017-03-23 08:22 | disposition home or self-care (01) | DRG 195 ==
LOC: LAB 10:58 → 2ND 12:07
PROVIDERS: Internal Medicine Adolescent Medicine; Nurse Practitioner Family
DX: J13 Pneumonia due to Streptococcus pneumoniae (principal); J45.20 Mild intermittent asthma, uncomplicated; Z82.49 Family history of ischemic heart disease and other diseases of the circulatory system; Z80.9 Family history of malignant neoplasm, unspecified
CPT/HCPCS: J0456

== ENCOUNTER → 2017-04-06 | Outpatient (CLI) | payer MEDICAID ==
[~2017-04-06] MED LIST changes: +OMNICEF 300 MG300 MG PO; +PROVENTIL0.09 MG/A1 IH; +ZITHROMAX Z-PA250 M2 PO
--- NOTE | 2017-04-06 10:23 | RADIOLOGY REPORT PS360 ---
CHEST(2 VIEWS-NOT PORTABLE) HISTORY: PNEUMONIA RIGHT LOWER LOBE 2 weeks still having chest pain Patient Age: 31 years: Male Ordering Physician: Jermaine Crawford MD TECHNIQUE: 2 view chest COMPARISON :PA and lateral chest March 21, 2017 FINDINGS A persistent density at the posterior right lung base. Although the PA film appears similar & unchanged previous studies there are changes of the lateral view. On the lateral view it appears that RLL infiltrate & pneumonia has shown improvement, but the density seen today is more posteriorly positioned & appears primarily pleural-based with some persistent airspace disease overlying this pleural collection.. A suspect small up to moderate focal loculated pleural effusion here, overlying the posterior aspect RLL as seen on the lateral view. If there should leukocytosis or persistent fever/pain this may warrant a CT with contrast, or possibly CTA chest to better evaluate given this appearance. Suspect a loculated area of pleural fluid but but CT may be of benefit to better exclude other features including developing empyema; particularly if persistent elevated white count.; Or Antony hump feature. There is some RLL atelectasis and persistent volume loss with elevation right hemidiaphragm again noted. Left lung remains clear and unremarkable Heart is normal in size mediastinal structures unremarkable. Upper lung candelario clear. Chest wall unremarkable. T-spine intact. IMPRESSION 1. Improvement, with significant clearing RLL pneumonia and airspace disease . 2. However on lateral view we now see additional pleural-based density posteriorly likely reflecting increasing associated loculated effusion..... If there are persistent symptoms a may want to consider a follow-up CT or CTA chest to further evaluate as discussed above..
== END ==
LOC: RAD 09:10
DX: J18.1 Lobar pneumonia, unspecified organism (principal)